=== PATIENT | female | born 1990 | race Caucasian/White ===

== ENCOUNTER 2019-05-01 18:53 | Observation (INO) | payer MEDICAID ==
[2019-05-01 19:42] LABS: BILIRUBIN,URINE SMALL (NEG); CLARITY,URINE CLEAR; COLOR,URINE ORANGE; NITRITE,URINE NEGATIVE (NEG); PROTEIN,URINE 30 mg/dL (NEG-TRACE)
[2019-05-01] MEDS: IV RINGERS,LACTATED 1000ML 1,000 ML IV SCH ×2 (19:45→20:51)
[2019-05-01 19:47] LABS: BARBITURATES NEG (NEG); BENZODIAZEPINES NEG (NEG); CANNABINOIDS NEG (NEG); COCAINE NEG (NEG); METHADONE NEG (NEG); OPIATES NEG (NEG); PHENCYCLIDINE NEG (NEG)
[2019-05-01 19:48] LABS: AMPHETAMINE/METHAMPHETAMINE NEG (NEG)
[2019-05-01 19:52] LABS: BACTERIA,URINE FEW /HPF (0-FEW); RBC,URINE 0 /HPF (0-2); SQUAMOUS EPITHELIAL CELL,UR MANY /LPF
[2019-05-01] MEDS ORDERED: IV RINGERS,LACTATED 1000ML 1,000 ML IV SCH (20:00)
[2019-05-01] MEDS ORDERED: ONDANSETRON PF 4 MG/2 ML VIAL. IVP PRN (20:00)
[2019-05-01 20:51] LABS: BASO # 0.1 x10^3/uL (0.0-0.2); BASO % 1 % (0-3); EOS # 0.1 x10^3/uL (0.0-0.7); EOS % 1 % (0-3); HEMATOCRIT 33.4 % (36.0-47.0); HEMOGLOBIN 11.4 g/dL (12.0-15.5); LYMPH # 3.6 x10^3/uL (1.0-4.8); LYMPH % 26 % (24-48); MEAN CORPUSCULAR HEMOGLOBIN 32 pg (25-35); MEAN CORPUSCULAR HGB CONC 34 g/dL (31-37); MEAN CORPUSCULAR VOLUME 95 fL (79-100); MONO # 0.9 x10^3/uL (0.0-1.1); MONO % 6 % (0-9); NEUT # 9.1 x10^3/uL (1.8-7.7); NEUT % 66 % (31-73); PLATELET COUNT 274 x10^3/uL (140-400); RED BLOOD COUNT 3.53 x10^6/uL (3.50-5.40); RED CELL DISTRIBUTION WIDTH 13.2 % (11.5-14.5); WHITE BLOOD COUNT 13.8 x10^3/uL (4.0-11.0)
[2019-05-01 20:59] LABS: CALCIUM 8.7 mg/dL (8.5-10.1); CREATININE 0.5 mg/dL (0.6-1.0); GFR 143.9; POTASSIUM 3.5 mmol/L (3.5-5.1)
[2019-05-01 21:05] LABS: ALBUMIN/GLOBULIN RATIO 0.9 (1.0-1.7); TOTAL BILIRUBIN 0.7 mg/dL (0.2-1.0); TOTAL PROTEIN 6.4 g/dL (6.4-8.2)
== END 2019-05-01 22:08 | disposition home or self-care (01) ==
LOC: 3 SO LND 18:53
PROVIDERS: ADMIT Obstetrics & Gynecology; ATTEND Obstetrics & Gynecology
DX: O26.893 Other specified pregnancy related conditions, third trimester (principal); R10.9 Unspecified abdominal pain; M54.9 Dorsalgia, unspecified; O21.0 Mild hyperemesis gravidarum; Z3A.34 34 weeks gestation of pregnancy
CPT/HCPCS: 36415; 80053; 80307; 81001; 85025; 87086; 96361; 96374; G0378; G0379; J2405; J7120

== ENCOUNTER 2019-05-29 17:30 | Observation (INO) | payer MEDICAID ==
[2019-05-29] MEDS ORDERED: IV RINGERS,LACTATED 1000ML 1,000 ML IV SCH (17:33)
[2019-05-29] MEDS ORDERED: ACETAMINOPHEN 325 MG TABLET. PO PRN (17:45)
[2019-05-29] MEDS ORDERED: ONDANSETRON PF 4 MG/2 ML VIAL. IV PRN (17:45)
[2019-05-29 17:50] LABS: BILIRUBIN,URINE SMALL (NEG); CLARITY,URINE CLEAR; COLOR,URINE AMBER; NITRITE,URINE NEGATIVE (NEG); PROTEIN,URINE 100 mg/dL (NEG-TRACE)
[2019-05-29 17:56] LABS: BACTERIA,URINE FEW /HPF (0-FEW); SQUAMOUS EPITHELIAL CELL,UR MANY /LPF; WBC,URINE >40 /HPF (0-4)
[2019-05-29 17:57] LABS: BARBITURATES NEG (NEG); BENZODIAZEPINES NEG (NEG); CANNABINOIDS NEG (NEG); COCAINE NEG (NEG); METHADONE NEG (NEG); OPIATES NEG (NEG); PHENCYCLIDINE NEG (NEG)
[2019-05-29 17:58] LABS: AMPHETAMINE/METHAMPHETAMINE NEG (NEG)
--- NOTE | 2019-06-01 19:09 | SSS ---
ADMIT DATE: 05/30/2019 ADMISSION DIAGNOSES: 1. Intrauterine at 36 weeks 4 days by 14-week ultrasound. 2. labor versus contractions. 3. Status post steroids. 4. Asthma. 5. Tobacco use. 6. GBS negative. DISCHARGE DIAGNOSES: 1. Intrauterine at 36 weeks 4 days by 14-week ultrasound. 2. labor versus contractions. 3. Status post steroids. 4. Asthma. 5. Tobacco use. 6. GBS negative. PROCEDURES: None. BRIEF HOSPITAL COURSE: EDC 06/22/2019, LMP 09/21/2018. HISTORY OF PRESENT ILLNESS: The patient is a 29-year-old 7, para 2-0-4-2, at 36 weeks 4 days by 14-week ultrasound, who presented to Labor and Delivery with contractions. The patient had been seen previously at [facility] and was 4 cm. She was given Vistaril, but felt that her contractions were not being taken seriously. On presentation to [facility], the patient's cervical exam remained 4 cm. The patient was given the option of being discharged or observing her overnight since she was olga frequently. The patient ultimately decided to have observation overnight. The patient remained 4 cm the following morning and was subsequently discharged. PAST MEDICAL HISTORY: Denies. PAST SURGICAL HISTORY: History of D and C. MEDICATIONS: vitamins. ALLERGIES: No known drug allergies. OBSTETRICAL HISTORY: Term spontaneous vaginal delivery x 2, AB x 4. SOCIAL HISTORY: No tobacco or alcohol use. REVIEW OF SYSTEMS: As noted in HPI. PHYSICAL EXAMINATION: CHEST: Clear to auscultation bilaterally. CARDIOVASCULAR: Regular rate and rhythm. ABDOMEN: Soft, gravid. EXTREMITIES: No clubbing, cyanosis or edema. heart tones 140s with positive accelerations, no decelerations, moderate long-term variability noted. Tocometer 8-10 minutes, sterile vaginal exam, the patient is 4 cm dilated, 80% effaced, and -1 station. ASSESSMENT AND PLAN: 1. The patient is a 29-year-old 7, para 2-0-4-2, at 36 weeks 4 days by 14-week ultrasound. Since the patient is only having contractions and cervical exam unchanged, the patient will be discharged home to follow up in outpatient. 2. Asthma, rarely requires her inhaler. 3. Tobacco use, half a pack a day. 4. Nausea throughout the , on Zofran. 5. History of anxiety, on sertraline first trimester. 6. Desires permanent sterilization, consent form signed but not matured. LALIT HELMS MD DR: FRANK/farrah JOB#: [id number] / [id number] NAHOMI
== END 2019-05-30 09:54 | disposition home or self-care (01) ==
LOC: INTOOBSV 17:30 → 3 SO LND 17:30
PROVIDERS: ADMIT Obstetrics & Gynecology; ATTEND Obstetrics & Gynecology
DX: O62.9 Abnormality of forces of labor, unspecified (principal); O99.513 Diseases of the respiratory system complicating pregnancy, third trimester; J45.909 Unspecified asthma, uncomplicated; O99.333 Smoking (tobacco) complicating pregnancy, third trimester; F17.210 Nicotine dependence, cigarettes, uncomplicated; F41.9 Anxiety disorder, unspecified; O99.343 Other mental disorders complicating pregnancy, third trimester; F53.1 Puerperal psychosis; Z3A.36 36 weeks gestation of pregnancy; Z79.899 Other long term (current) drug therapy
CPT/HCPCS: 80307; 81001; 87086; 96374; G0378; G0379; J2405; 99285

== ENCOUNTER 2019-06-01 10:12 | Inpatient (IN) | payer MEDICAID ==
[~2019-06-01] VITALS: Ht 162.6 cm; Wt 67.6 kg
[2019-06-01 10:51] LABS: BILIRUBIN,URINE NEGATIVE (NEG); CLARITY,URINE CLOUDY; COLOR,URINE YELLOW; NITRITE,URINE NEGATIVE (NEG); PROTEIN,URINE NEGATIVE (NEG-TRACE)
[2019-06-01 11:21] LABS: BACTERIA,URINE 0 /HPF (0-FEW); SQUAMOUS EPITHELIAL CELL,UR FEW /LPF
--- NOTE | 2019-06-01 12:42 | PDOC1 ---
OB HISTORY AND PHYSICAL DATE OF ADMISSION DATE OF ADMISSION Date of Admission: Jun 01, 2019 at 10:12 CHIEF COMPLAINT Problems: (1) (2) Active labor HISTORY OF PRESENT Other Complications EDC: 06/22/19 LMP: 09/21/18 HPI: The pt is a 29y @ 37.0 by 14wk u/s presents to L&D with ctxs. On presentation the pt was found to be 5cm dilated. In the office the day prior she was found to be 4cm. Over an hours time the pts cervix progressed to 6cm so she was admitted for active labor. The pt was getting her care with [facility]. Last Friday she presented to their L&D and was found to be 2cm dilated. That the pt returned and was found to have progressed. She was given BMTZ on 05/27, 05/28. She left at 4 cm dilated and presented to [facility]. She was monitored overnight and remained 4cm. The pt states that she had a GBS obtained at the office and on L&D at [facility]. The pt states that she signed PABLITO tubal papers about 3wks ago. She is sure she wants a BTL. Review of her records revealed near the beginning of she was taking Sertaline for anxiety. She is no longer taking this med. She also was checked for bile salts and urine Pr/Cr in mid Mar. PMH: Denies PSH: D&C Meds: PNV All: NKDA OBHx: TSVD x 2, AB x 4 SH: no tob, no EtOH VTE PROPHYLAXIS ORDERED VTE Prophylaxis Devices: No VTE Pharmacological Prophylax: No OB - History Past Family/Social History * Past Medical, Surgical, Family and Obstetric Histories reviewed from chart. OB - Admission Exam Physical Exam Vitals: FHT: 150s +acels/no decels/mLTV [place]: 5-8 min SVE: 6/80/-1 Assessment/Plan Assessment/Plan A/P 29y @ 37.0 by 14wk u/s 1.) Active labor 2.) Asthma - rarely requires inhaler 3.) Tob use - 1/2PPD 4.) Fetus cat I FHT, s/p BMTZ 05/27, 05/28 5.) Nausea - throughout , on Zofran 6.) GBS neg 7.) H/o anxiety Sertaline in 1st trimester 8.) Bile salts obtained appears to be for 2+ protein, BPs nml throughout 9.) DPS consent not available at this time (probably signed 05/11/19 (not 30 days) LALIT HELMS MD Jun 01, 2019 12:42
[2019-06-01] MEDS ORDERED: LIDOCAINE 1% PF 30 ML VIAL. INJ PRN (13:00)
[2019-06-01] MEDS ORDERED: fentaNYL PF VIAL 100 MCG/2 ML VIAL IV PRN (13:00)
[2019-06-01] MEDS ORDERED: OXYTOCIN 30 UNIT/500 ML PREMIX 500 ML IV PRN ×3 (13:00→17:00)
[2019-06-01] MEDS ORDERED: TERBUTALINE 1 MG/ML VIAL. SQ PRN (13:00)
[2019-06-01] MEDS ORDERED: 0.9 % SODIUM CHLORIDE 10 ML DISP.SYRIN. IV PRN ×2 (13:00→17:00)
[2019-06-01 13:05] LABS: BASO # 0.1 x10^3/uL (0.0-0.2); BASO % 1 % (0-3); EOS # 0.1 x10^3/uL (0.0-0.7); EOS % 0 % (0-3); HEMATOCRIT 36.3 % (36.0-47.0); HEMOGLOBIN 12.3 g/dL (12.0-15.5); LYMPH # 2.7 x10^3/uL (1.0-4.8); LYMPH % 16 % (24-48); MEAN CORPUSCULAR HEMOGLOBIN 31 pg (25-35); MEAN CORPUSCULAR HGB CONC 34 g/dL (31-37); MEAN CORPUSCULAR VOLUME 92 fL (79-100); MONO % 6 % (0-9); NEUT # 13.5 x10^3/uL (1.8-7.7); NEUT % 78 % (31-73); PLATELET COUNT 207 x10^3/uL (140-400); RED BLOOD COUNT 3.97 x10^6/uL (3.50-5.40); RED CELL DISTRIBUTION WIDTH 13.1 % (11.5-14.5); WHITE BLOOD COUNT 17.4 x10^3/uL (4.0-11.0)
[2019-06-01 13:29] VITALS: BP 124/59
[2019-06-01] MEDS: IV RINGERS,LACTATED 1000ML 1,000 ML IV SCH ×2 (13:35→20:48)
--- NOTE | 2019-06-01 13:50 | PDOC ---
OB Progress Note Notes Pt comfortable at this time. Plans to get Epidural Lab Laboratory Tests Test 06/01/19 10:35 06/01/19 12:45 Urine Collection Type Unknown Urine Color Yellow Urine Clarity Cloudy Urine pH 7.0 Urine Specific [place] 1.015 Urine Protein Negative mg/dL (NEG-TRACE) Urine Glucose (UA) Negative mg/dL (NEG) Urine Ketones (Stick) Negative mg/dL (NEG) Urine Blood Small (NEG) Urine Nitrite Negative (NEG) Urine Bilirubin Negative (NEG) Urine Urobilinogen Dipstick 2.0 mg/dL (0.2 mg/dL) Urine Leukocyte Esterase Small (NEG) Urine RBC 6-10 /HPF (0-2) Urine WBC 1-4 /HPF (0-4) Urine Squamous Epithelial Cells Few /LPF Urine Bacteria 0 /HPF (0-FEW) White Blood Count 17.4 x10^3/uL (4.0-11.0) Red Blood Count 3.97 x10^6/uL (3.50-5.40) Hemoglobin 12.3 g/dL (12.0-15.5) Hematocrit 36.3 % (36.0-47.0) Mean Corpuscular Volume 92 fL (79-100) Mean Corpuscular Hemoglobin 31 pg (25-35) Mean Corpuscular Hemoglobin Concent 34 g/dL (31-37) Red Cell Distribution Width 13.1 % (11.5-14.5) Platelet Count 207 x10^3/uL (140-400) Neutrophils (%) (Auto) 78 % (31-73) Lymphocytes (%) (Auto) 16 % (24-48) Monocytes (%) (Auto) 6 % (0-9) Eosinophils (%) (Auto) 0 % (0-3) Basophils (%) (Auto) 1 % (0-3) Neutrophils # (Auto) 13.5 x10^3/uL (1.8-7.7) Lymphocytes # (Auto) 2.7 x10^3/uL (1.0-4.8) Monocytes # (Auto) 1.0 x10^3/uL (0.0-1.1) Eosinophils # (Auto) 0.1 x10^3/uL (0.0-0.7) Basophils # (Auto) 0.1 x10^3/uL (0.0-0.2) Laboratory Tests Test 06/01/19 10:35 06/01/19 12:45 Urine Collection Type Unknown Urine Color Yellow Urine Clarity Cloudy Urine pH 7.0 Urine Specific [place] 1.015 Urine Protein Negative mg/dL (NEG-TRACE) Urine Glucose (UA) Negative mg/dL (NEG) Urine Ketones (Stick) Negative mg/dL (NEG) Urine Blood Small (NEG) Urine Nitrite Negative (NEG) Urine Bilirubin Negative (NEG) Urine Urobilinogen Dipstick 2.0 mg/dL (0.2 mg/dL) Urine Leukocyte Esterase Small (NEG) Urine RBC 6-10 /HPF (0-2) Urine WBC 1-4 /HPF (0-4) Urine Squamous Epithelial Cells Few /LPF Urine Bacteria 0 /HPF (0-FEW) White Blood Count 17.4 x10^3/uL (4.0-11.0) Red Blood Count 3.97 x10^6/uL (3.50-5.40) Hemoglobin 12.3 g/dL (12.0-15.5) Hematocrit 36.3 % (36.0-47.0) Mean Corpuscular Volume 92 fL (79-100) Mean Corpuscular Hemoglobin 31 pg (25-35) Mean Corpuscular Hemoglobin Concent 34 g/dL (31-37) Red Cell Distribution Width 13.1 % (11.5-14.5) Platelet Count 207 x10^3/uL (140-400) Neutrophils (%) (Auto) 78 % (31-73) Lymphocytes (%) (Auto) 16 % (24-48) Monocytes (%) (Auto) 6 % (0-9) Eosinophils (%) (Auto) 0 % (0-3) Basophils (%) (Auto) 1 % (0-3) Neutrophils # (Auto) 13.5 x10^3/uL (1.8-7.7) Lymphocytes # (Auto) 2.7 x10^3/uL (1.0-4.8) Monocytes # (Auto) 1.0 x10^3/uL (0.0-1.1) Eosinophils # (Auto) 0.1 x10^3/uL (0.0-0.7) Basophils # (Auto) 0.1 x10^3/uL (0.0-0.2) Medications Current Medications Sodium Chloride (Normal Saline Flush) 3 ml QSHIFT PRN IV AFTER MEDS AND BLOOD DRAWS; Start 06/01/19 at 13:00 Ringer's Solution 1,000 ml @ 125 mls/hr Q8H IV Last administered on 06/01/19at 13:35; Start 06/01/19 at 12:48 Fentanyl Citrate (Fentanyl 2ml Vial) 100 mcg PRN Q30MIN PRN IV Severe pain; Start 06/01/19 at 13:00 Terbutaline Sulfate (Brethine) 0.25 mg 1X PRN PRN SQ SEE COMMENTS; Start 06/01/19 at 13:00; Stop 06/02/19 at 12:59 Lidocaine HCl (Xylocaine 1% Pf 30ml Vial) 30 ml 1X PRN PRN INJ SEE COMMENTS; Start 06/01/19 at 13:00; Stop 06/03/19 at 12:59 Oxytocin/Sodium Chloride 500 ml @ 0 mls/hr CONT PRN IV SEE I/O RECORD; Start 06/01/19 at 13:00 Oxytocin/Sodium Chloride 500 ml @ 0 mls/hr CONT PRN PRN IV Post delivery bleeding; Start 06/01/19 at 13:00 Ibuprofen (Motrin) 800 mg PRN Q6HRS PRN PO PAIN; Start 06/01/19 at 13:00 Notes FHT: 150s +acels/no decels/mLTV [place]: 5-8 min SVE: 6-7/80/-1 Assessment A/P 29y @ 37.0 by 14wk u/s 1.) Active labor - AROM'ed for augmentation ([facility]) 2.) Asthma - rarely requires inhaler 3.) Tob use - 1/2PPD 4.) Fetus cat I FHT, s/p BMTZ 2/6, 2/7 5.) Nausea - throughout , on Zofran 6.) GBS neg 7.) H/o anxiety Sertaline in 1st trimester 8.) Bile salts obtained appears to be for 2+ protein, BPs nml throughout 9.) DPS PABLITO consent signed 05/11/19 LALIT HELMS MD Jun 01, 2019 13:50
[2019-06-01 14:14] LABS: % BANDS 3 % (0-9); % LYMPHS 18 % (24-48); % MONOS 3 % (0-10); % SEGS 76 % (35-66)
[2019-06-01 14:16] LABS: PLT ESTIMATE ADEQUATE (ADEQUATE); POLYCHROMASIA SLIGHT; TOXIC GRANULATION SLIGHT
[2019-06-01] MEDS ORDERED: IV RINGERS,LACTATED 1000ML 1,000 ML IV ONE (14:20)
[2019-06-01] MEDS ORDERED: ROPIVacaine 0.2% PF 10 ML VIAL. ONE ×2 (14:24→15:00)
[2019-06-01] MEDS ORDERED: NALOXONE 0.4 MG/ML VIAL. IV PRN (14:30)
[2019-06-01] MEDS ORDERED: L&D EPIDURAL SYRINGE 50 ML EPID PRN (14:30)
[2019-06-01] MEDS ORDERED: ONDANSETRON PF 4 MG/2 ML VIAL. IV PRN (14:30)
[2019-06-01] MEDS ORDERED: ePHEDrine PF IN SALINE 50 MG/10 ML SYRINGE. IV PRN (14:30)
[2019-06-01] MEDS ORDERED: OXYTOCIN PREMIX 30 UNIT/500 ML NS BAG. IV ONE (15:00)
--- NOTE | 2019-06-01 16:57 | PDOC ---
VAGINAL DELIVERY DATE DATE: 06/01/19 TIME: 16:56 WEIGHT Weight [ ] DIAGNOSIS Patient delivered a viable male over intact perineum at 1639. bulb suctioned at perineum. Cord double clamped and cut and handed to waiting RN. Wt 6lb 8.2oz. Apgars 8/9. Placenta delivered spontaneously, intact with 3VC. No lacerations observed. 20U of Pitocin infused with IVF. EBL 200cc. LALIT HELMS MD Jun 01, 2019 16:57
[2019-06-01] MEDS ORDERED: ZOLPIDEM 5 MG TABLET. PO PRN (17:00)
[2019-06-01] MEDS ORDERED: oxyCODONE/APAP 5/325 1 TAB TABLET PO PRN (17:00)
[2019-06-01] MEDS ORDERED: MAGNESIUM HYDROXIDE 2,400 MG/30 ML ORAL.SUSP. PO PRN (17:00)
[2019-06-01] MEDS ORDERED: MAG HYDROX/ALUMINUM HYD/SIMETH 30 ML ORAL.SUSP PO PRN (17:00)
[2019-06-01] MEDS ORDERED: ACETAMINOPHEN 325 MG TABLET. PO PRN (17:00)
[2019-06-01] MEDS ORDERED: BENZOCAINE 20% TOPICAL AEROSOL SPRAY 57GM CAN. TP PRN (17:00)
[2019-06-01] MEDS ORDERED: diphenhydrAMINE HCL 25 MG CAPSULE PO PRN (17:00)
[2019-06-01] MEDS ORDERED: HYDROCORTISONE 1% TOPICAL OINTMENT 30GM TUBE. TP PRN (17:00)
[2019-06-01] MEDS ORDERED: MMR per PROTOCOL. MC PRN (17:00)
[2019-06-01] MEDS ORDERED: SIMETHICONE 80 MG TAB.CHEW PO PRN (17:00)
[2019-06-01] MEDS ORDERED: PHENYLEPH/MINERAL OIL/PETROLAT RECTAL OINTMENT TUBE. RC PRN (17:00)
--- NOTE | 2019-06-01 19:40 | NUR ---
The patient, SAMI FAUSTIN, 29 y/o, F admitted by LALIT HELMS MD, was given information regarding hospital policies, unit procedures and contact persons. Patient is resting with family at bedside. Bed in low position with top side rails up and call light is within reach. Will continue to monitor patient. Report received from Janene Nguyen
[2019-06-01 20:01] VITALS: BP 108/66
[2019-06-01] MEDS: IBUPROFEN 400 MG TABLET. PO PRN (21:45)
[2019-06-02 00:47] VITALS: BP 99/50
[2019-06-02 03:49] LABS: HEMOGLOBIN 11.5 g/dL (12.0-15.5); RED BLOOD COUNT 3.69 x10^6/uL (3.50-5.40); RED CELL DISTRIBUTION WIDTH 12.9 % (11.5-14.5); WHITE BLOOD COUNT 16.3 x10^3/uL (4.0-11.0)
[2019-06-02] MEDS: IBUPROFEN 400 MG TABLET. PO PRN ×3 (05:53→21:57)
[2019-06-02 05:59] VITALS: BP 110/64
[2019-06-02] MEDS: IV RINGERS,LACTATED 1000ML 1,000 ML IV SCH (06:32)
--- NOTE | 2019-06-02 07:50 | PDOC ---
OB Progress Note Date of Service 06/02/19 Time of Evaluation 0750 Notes Pt. feeling well. No complaints. Lab Laboratory Tests Test 06/01/19 10:35 06/01/19 12:45 06/02/19 03:20 Urine Collection Type Unknown Urine Color Yellow Urine Clarity Cloudy Urine pH 7.0 Urine Specific [place] 1.015 Urine Protein Negative mg/dL (NEG-TRACE) Urine Glucose (UA) Negative mg/dL (NEG) Urine Ketones (Stick) Negative mg/dL (NEG) Urine Blood Small (NEG) Urine Nitrite Negative (NEG) Urine Bilirubin Negative (NEG) Urine Urobilinogen Dipstick 2.0 mg/dL (0.2 mg/dL) Urine Leukocyte Esterase Small (NEG) Urine RBC 6-10 /HPF (0-2) Urine WBC 1-4 /HPF (0-4) Urine Squamous Epithelial Cells Few /LPF Urine Bacteria 0 /HPF (0-FEW) White Blood Count 17.4 x10^3/uL (4.0-11.0) 16.3 x10^3/uL (4.0-11.0) Red Blood Count 3.97 x10^6/uL (3.50-5.40) 3.69 x10^6/uL (3.50-5.40) Hemoglobin 12.3 g/dL (12.0-15.5) 11.5 g/dL (12.0-15.5) Hematocrit 36.3 % (36.0-47.0) 34.0 % (36.0-47.0) Mean Corpuscular Volume 92 fL (79-100) 92 fL (79-100) Mean Corpuscular Hemoglobin 31 pg (25-35) 31 pg (25-35) Mean Corpuscular Hemoglobin Concent 34 g/dL (31-37) 34 g/dL (31-37) Red Cell Distribution Width 13.1 % (11.5-14.5) 12.9 % (11.5-14.5) Platelet Count 207 x10^3/uL (140-400) 210 x10^3/uL (140-400) Neutrophils (%) (Auto) 78 % (31-73) Lymphocytes (%) (Auto) 16 % (24-48) Monocytes (%) (Auto) 6 % (0-9) Eosinophils (%) (Auto) 0 % (0-3) Basophils (%) (Auto) 1 % (0-3) Neutrophils # (Auto) 13.5 x10^3/uL (1.8-7.7) Lymphocytes # (Auto) 2.7 x10^3/uL (1.0-4.8) Monocytes # (Auto) 1.0 x10^3/uL (0.0-1.1) Eosinophils # (Auto) 0.1 x10^3/uL (0.0-0.7) Basophils # (Auto) 0.1 x10^3/uL (0.0-0.2) Segmented Neutrophils % 76 % (35-66) Band Neutrophils % 3 % (0-9) Lymphocytes % 18 % (24-48) Monocytes % 3 % (0-10) Toxic Granulation Slight Platelet Estimate Adequate (ADEQUATE) Polychromasia Slight Treponema pallidum Antibody Nonreactive (Nonreactive) Laboratory Tests Test 06/01/19 10:35 06/01/19 12:45 06/02/19 03:20 Urine Collection Type Unknown Urine Color Yellow Urine Clarity Cloudy Urine pH 7.0 Urine Specific [place] 1.015 Urine Protein Negative mg/dL (NEG-TRACE) Urine Glucose (UA) Negative mg/dL (NEG) Urine Ketones (Stick) Negative mg/dL (NEG) Urine Blood Small (NEG) Urine Nitrite Negative (NEG) Urine Bilirubin Negative (NEG) Urine Urobilinogen Dipstick 2.0 mg/dL (0.2 mg/dL) Urine Leukocyte Esterase Small (NEG) Urine RBC 6-10 /HPF (0-2) Urine WBC 1-4 /HPF (0-4) Urine Squamous Epithelial Cells Few /LPF Urine Bacteria 0 /HPF (0-FEW) White Blood Count 17.4 x10^3/uL (4.0-11.0) 16.3 x10^3/uL (4.0-11.0) Red Blood Count 3.97 x10^6/uL (3.50-5.40) 3.69 x10^6/uL (3.50-5.40) Hemoglobin 12.3 g/dL (12.0-15.5) 11.5 g/dL (12.0-15.5) Hematocrit 36.3 % (36.0-47.0) 34.0 % (36.0-47.0) Mean Corpuscular Volume 92 fL (79-100) 92 fL (79-100) Mean Corpuscular Hemoglobin 31 pg (25-35) 31 pg (25-35) Mean Corpuscular Hemoglobin Concent 34 g/dL (31-37) 34 g/dL (31-37) Red Cell Distribution Width 13.1 % (11.5-14.5) 12.9 % (11.5-14.5) Platelet Count 207 x10^3/uL (140-400) 210 x10^3/uL (140-400) Neutrophils (%) (Auto) 78 % (31-73) Lymphocytes (%) (Auto) 16 % (24-48) Monocytes (%) (Auto) 6 % (0-9) Eosinophils (%) (Auto) 0 % (0-3) Basophils (%) (Auto) 1 % (0-3) Neutrophils # (Auto) 13.5 x10^3/uL (1.8-7.7) Lymphocytes # (Auto) 2.7 x10^3/uL (1.0-4.8) Monocytes # (Auto) 1.0 x10^3/uL (0.0-1.1) Eosinophils # (Auto) 0.1 x10^3/uL (0.0-0.7) Basophils # (Auto) 0.1 x10^3/uL (0.0-0.2) Segmented Neutrophils % 76 % (35-66) Band Neutrophils % 3 % (0-9) Lymphocytes % 18 % (24-48) Monocytes % 3 % (0-10) Toxic Granulation Slight Platelet Estimate Adequate (ADEQUATE) Polychromasia Slight Treponema pallidum Antibody Nonreactive (Nonreactive) Medications Current Medications Sodium Chloride (Normal Saline Flush) 3 ml QSHIFT PRN IV AFTER MEDS AND BLOOD DRAWS; Start 06/01/19 at 13:00; Stop 06/02/19 at 07:21; Status DC Ringer's Solution 1,000 ml @ 125 mls/hr Q8H IV Last administered on 06/01/19at 13:35; Start 06/01/19 at 12:48; Stop 06/02/19 at 07:21; Status DC Fentanyl Citrate (Fentanyl 2ml Vial) 100 mcg PRN Q30MIN PRN IV Severe pain Last administered on 06/01/19at 14:36; Start 06/01/19 at 13:00; Stop 06/02/19 at 07:21; Status DC Terbutaline Sulfate (Brethine) 0.25 mg 1X PRN PRN SQ SEE COMMENTS; Start 06/01/19 at 13:00; Stop 06/02/19 at 07:21; Status DC Lidocaine HCl (Xylocaine 1% Pf 30ml Vial) 30 ml 1X PRN PRN INJ SEE COMMENTS; Start 06/01/19 at 13:00; Stop 06/02/19 at 07:21; Status DC Oxytocin/Sodium Chloride 500 ml @ 0 mls/hr CONT PRN IV SEE I/O RECORD; Start 06/01/19 at 13:00; Stop 06/02/19 at 07:21; Status DC Oxytocin/Sodium Chloride 500 ml @ 0 mls/hr CONT PRN PRN IV Post delivery bleeding; Start 06/01/19 at 13:00 Ibuprofen (Motrin) 800 mg PRN Q6HRS PRN PO PAIN Last administered on 06/02/19at 05:53; Start 06/01/19 at 13:00 Ringer's Solution 1,000 ml @ 0 mls/hr Q0M ONCE IV Last administered on 06/01/19at 14:33; Start 06/01/19 at 14:20; Stop 06/02/19 at 07:21; Status DC Ephedrine Sulfate (ePHEDrine PF IN SALINE SYRINGE) 10 mg PRN Q2MIN PRN IV IF SBP<90; Start 06/01/19 at 14:30; Stop 06/02/19 at 07:21; Status DC Naloxone HCl (Narcan) 0.04 mg PRN Q1MIN PRN IV SEE COMMENTS; Start 06/01/19 at 14:30 Fentanyl Citrate 50 ml @ 14 mls/hr CONT PRN EPID PAIN Last administered on 06/01/19at 14:35; Start 06/01/19 at 14:30; Stop 06/02/19 at 07:21; Status DC Ondansetron HCl (Zofran) 4 mg PRN Q6HRS PRN IV NAUSEA/VOMITING; Start 06/01/19 at 14:30; Stop 06/02/19 at 07:21; Status DC Ropivacaine (Naropin 0.2%) 10 ml STK-MED ONCE .ROUTE ; Start 06/01/19 at 14:24; Stop 06/01/19 at 14:25; Status DC Sodium Chloride (Normal Saline Flush) 10 ml QSHIFT PRN IV AFTER MEDS AND BLOOD DRAWS; Start 06/01/19 at 17:00; Stop 06/02/19 at 07:21; Status DC Oxytocin/Sodium Chloride 500 ml @ 62.5 mls/hr CONT PRN IV SEE I/O RECORD; Start 06/01/19 at 17:00; Stop 06/02/19 at 00:59; Status DC Acetaminophen (Tylenol) 650 mg PRN Q6HRS PRN PO MILD PAIN / TEMP; Start 06/01/19 at 17:00 Magnesium Hydroxide (Milk Of Magnesia) 2,400 mg PRN DAILY PRN PO CONSTIPATION; Start 06/01/19 at 17:00 Al Hydroxide/Mg Hydroxide (Mylanta Plus Xs) 30 ml PRN Q4HRS PRN PO HEARTBURN / GAS; Start 06/01/19 at 17:00 Simethicone (Gas-X) 80 mg PRN AFTMEALHC PRN PO GAS / BLOATING; Start 06/01/19 at 17:00 Diphenhydramine HCl (Benadryl) 25 mg PRN Q6HRS PRN PO ITCHING; Start 06/01/19 at 17:00 Benzocaine (Americaine) 1 spray PRN QID PRN TP TOPICAL PAIN Last administered on 06/02/19at 03:23; Start 06/01/19 at 17:00 Phenyleph/Shark Oil/Min Oil/Petrol (Preparation H) 1 leanne PRN QID PRN RC RECTAL PAIN; Start 06/01/19 at 17:00 Hydrocortisone (Cortaid) 1 leanne PRN QID PRN TP PERINEAL PAIN; Start 06/01/19 at 17:00 Ferrous Sulfate (Feosol) 325 mg BIDWMEALS PO ; Start 06/02/19 at 08:00; Stop 06/02/19 at 07:21; Status DC Zolpidem Tartrate (Ambien) 5 mg PRN QHS PRN PO INSOMNIA, MAY REPEAT X1; Start 06/01/19 at 17:00 Info (Do NOT chart on this placeholder) 1 ea 1X PRN PRN MC SEE COMMENTS; Start 06/01/19 at 17:00 Info (Do NOT chart on this placeholder) 1 ea 1X PRN PRN MC SEE COMMENTS; Start 06/01/19 at 17:00; Stop 06/02/19 at 07:21; Status DC Oxycodone/ Acetaminophen (Percocet 5/325) 1 tab PRN Q4HRS PRN PO MILD PAIN 1-3; Start 06/01/19 at 17:00 Diphtheria/ Tetanus/Acell Pertussis (Boostrix) 0.5 ml ONCE ONCE VAX IM Last administered on 06/02/19at 07:46; Start 06/02/19 at 09:00; Stop 06/02/19 at 09:01 Exam Abd: soft, non tender, fundus firm Assessment PPD#1 s/p Plan of Care: Continue current Tx, Mgmt NORBERT CHIANG Jr, MD Jun 02, 2019 07:50
[2019-06-02] MEDS ORDERED: FERROUS SULFATE 325 MG TABLET. PO SCH (08:00)
[2019-06-02] MEDS ORDERED: DIPHTH,PERTUSS(ACELL),TET TOX 0.5 ML DISP.SYRIN. VAX IM ONE (09:00)
[2019-06-02 10:44] VITALS: BP 117/79
--- NOTE | 2019-06-02 11:15 | NUR ---
SS following up with referral regarding "mother has history of substance use and history of children in custody." SS reviewed mother chart. Mother UDS negative. RN reported infant Meconium negative and mother appropriate and bonding well with infant. SS met with mother in room. As observed, mother bonding well with infant during visit. Mother reported that she has been drug free for two to three years now. Mother reported that her son and daughter were placed in foster care two years ago and that she recently reunified with her daughter in December of 2018 and her son in February of 2019. Mother reported that both children have remained in her custody since that time. Mother has Medicaid and reported that she has been on services with [facility]. Mother reported that she has [place] appointment scheduled. Mother reported that care was with Dr. Willard Dillon. Mother reported she has all supplies needed for to include carseat, diapers, wipes, clothing, and blankets. Mother reported having good family support especially from maternal grandmother. Mother reported having good transportation to and from appointments. Mother reported that she plans to go back to work at [employer] on [address] in [place]. Mother reported that contact worker lithography is Dr. Lacie Delgadillo. Hotline report made for history of substance use and history of DCF custody. Intake#[id number]. RN notified.
[2019-06-02 16:05] VITALS: BP 112/78
[2019-06-03] MEDS: IBUPROFEN 400 MG TABLET. PO PRN ×3 (05:24→17:29)
[2019-06-03 05:30] VITALS: BP 113/71
--- NOTE | 2019-06-03 11:14 | PDOC3 ---
OB DISCHARGE SUMMARY DATE OF ADMISSION: 06/01/19 DATE OF DISCHARGE: 06/03/19 REASON FOR ADMISSION: Onset of labor INTRAPARTUM PROCEDURES: Spontanous Vag Deliv DISCHARGE DIAGNOSIS: Term Delivered DISCHARGE INFORMATION: Activity (ad galo), Diet (regular), Instructions (pelvic rest x 6 wks) HOSPITAL COURSE Term gestation delivered vaginally without complications. NORBERT CHIANG Jr, MD Jun 03, 2019 11:14
[2019-06-03] MEDS ORDERED: IBUP-1027 PO (11:16)
--- NOTE | 2019-06-03 11:17 | DISCH ---
DISCHARGE INSTRUCTIONS Condition on Discharge Condition on Discharge: Stable Activity After Discharge Activity Instructions for Disc: Activity as tolerated Lifting Instructions after Dis: No heavy lifting Driving Instructions after Dis: Do not drive today Diet after Discharge Diet after Discharge: Regular Contacting the DRSabrina after DC Call your doctor for: Concerns you may have Follow-Up Follow up with: Dr. Ann in 6 wks NORBERT CHIANG Jr, MD Jun 03, 2019 11:16
--- NOTE | 2019-06-03 12:05 | NUR ---
home inst gone over with pt no questions script for ibuprofen given
[2019-06-03 12:09] VITALS: BP 112/70
[2019-06-03 17:10] VITALS: BP 119/74
--- NOTE | 2019-06-03 17:39 | NUR ---
went over board[place] policy with pt states understands and signed
--- NOTE | 2019-06-04 09:07 | PATHOLOGY ---
[facility] Accession Number: [id number] . 01 Material submitted: . placenta - PLACNETA AND CORD . 01 Clinical history: . Term EDC 06/20/2019 7 para 2 8, 9 Meconium Gestational age 37.3 weeks . 02 Diagnosis: 503 gram early term placenta of an estimated 37.3 weeks gestation with attached membranes and umbilical cord: - Subamniotic pigmented histiocytes consistent with meconium staining. - Acute chorionitis and focal early acute chorioamnionitis of placental membranes. - Focal acute subchorionitis of chorionic plate. LBQ 06/03/2019 1544 Local . 02 Comment: There are no infarcts. There is no evidence of villitis. (JPM/db; 06/03/2019) . 02 Electronically signed: . Latrell Leal MD, Pathologist NPI- [id number] . 01 Gross description: . The specimen is received in formalin labeled "Goezt, Tiffany, placenta" and consists of a circular ortega placenta measuring 16.2 x 16.0 x 3.0 cm and weighing 503 g after removal of membranes and umbilical cord. The membranes are green gil thin and translucent with mild retro-membranous clot. The surface is green blue and well vascularized with a near marginally inserted 3 vessel umbilical cord, 2.3 cm from edge. There are multiple scattered subchorionic fibrin deposits occupying approximately 5% of the surface. The umbilical cord measures 13.5 cm in length and up to 1.8 cm in diameter with no true knots. The maternal surface shows complete and intact cotyledons with minimal calcifications and a small amount of adherent blood clot. Sectioning reveals a maroon-red and spongy parenchyma with no gross lesions. Hand Riveter sections are submitted as follows: . A1: Surface vessels A2: Umbilical cord and membrane rolls A3-A4: Full-thickness section bisected A5: Disc periphery with clot (SDY; 06/02/2019) SYU/SYU 06/03/2019 1529 Local . 02 Pathologist provided ICD-10: O77.0, O41.1230, Z3A.37, Z37.0 . 02 CPT . 326870 Specimen Comment: A courtesy copy of this report has been sent to [phone] Specimen Comment: Report sent to Performed at: 01 [facility] [address] [id number] MD Alfie José MD Phone: [phone] Performed at: 02 [facility] [address] [place] [id number] MD Latrell Leal MD Phone: [phone]
== END 2019-06-03 17:43 | disposition home or self-care (01) | DRG 807 ==
LOC: 3 SO LND 10:12 → OBSVTOIN 10:12 → 3 NORTH 19:45
PROVIDERS: ADMIT Obstetrics & Gynecology; ATTEND Obstetrics & Gynecology
PROC: 10E0XZZ Delivery of Products of Conception, External Approach (ICD-10-PCS; principal; 2019-06-01)
PROC: 3E0R3BZ Introduction of Anesthetic Agent into Spinal Canal, Percutaneous Approach (ICD-10-PCS; 2019-06-01)
PROC: 00HU33Z Insertion of Infusion Device into Spinal Canal, Percutaneous Approach (ICD-10-PCS; 2019-06-01)
PROC: 10907ZC Drainage of Amniotic Fluid, Therapeutic from Products of Conception, Via Natural or Artificial Opening (ICD-10-PCS; 2019-06-01)
PROC: 3E0234Z Introduction of Serum, Toxoid and Vaccine into Muscle, Percutaneous Approach (ICD-10-PCS; 2019-06-01)
DX: O77.0 Labor and delivery complicated by meconium in amniotic fluid (principal); Z37.0 Single live birth; O99.52 Diseases of the respiratory system complicating childbirth; J45.909 Unspecified asthma, uncomplicated; Z3A.37 37 weeks gestation of pregnancy; Z23 Encounter for immunization; O99.344 Other mental disorders complicating childbirth; F41.9 Anxiety disorder, unspecified
CPT/HCPCS: 36415; 81001; 85007; 85025; 85027; 86592; 86850; 86900; 86901; 87086; 88307; 90471; 90715; J2590; J2795; J3010; J7120; G0378

== ENCOUNTER → 2019-09-23 | Outpatient (CLI) | payer MEDICAID ==
[~2019-09-23] MED LIST: IBUP-1027 PO; IBUP-1060 PO; OXYC1TAB15 PO
== END | disposition home or self-care (01) ==
LOC: LAB 14:22
PROVIDERS: ATTEND Obstetrics & Gynecology
DX: Z11.59 Encounter for screening for other viral diseases (principal)
CPT/HCPCS: C9803; U0003

== ENCOUNTER 2019-09-27 11:22 | Day surgery (SDC) | payer MEDICAID ==
[~2019-09-27 11:22] MED LIST changes: +DEXAMETHASONE SOD PHOS 4 MG/ML VIAL ONE; +HYDROmorphone 2 MG/ML VIAL IV PRN; -IBUP-1060 PO; +IV RINGERS,LACTATED 1000ML 1,000 ML IV SCH; +KETOROLAC 30 MG/ML VIAL. ONE; +LIDOCAINE 1% PF 2 ML VIAL. ID PRN; +LIDOCAINE 2% PF 5 ML VIAL. ONE; +MIDAZOLAM HCL/PF 2 MG/2 ML VIAL. ONE; +MORPHINE SULFATE 2 MG/ML VIAL. IV PRN; +NEOSTIGMINE METHYLSULFATE 5 MG/5 ML SYRINGE. ONE; +ONDANSETRON PF 4 MG/2 ML VIAL. IV PRN; +ONDANSETRON PF 4 MG/2 ML VIAL. ONE; -OXYC1TAB15 PO; +PROCHLORPERAZINE 10 MG/2 ML VIAL. IV PRN; +PROPOFOL 10 MG/ML (20ML) VIAL. IV ONE; +ROCURONIUM 100 MG/10 ML VIAL. ONE; +fentaNYL PF VIAL 100 MCG/2 ML VIAL IV PRN; +fentaNYL PF VIAL 100 MCG/2 ML VIAL ONE
[2019-09-27 12:10] LABS: BASO # 0.1 x10^3/uL (0.0-0.2); BASO % 1 % (0-3); EOS # 0.3 x10^3/uL (0.0-0.7); EOS % 3 % (0-3); HEMATOCRIT 38.1 % (36.0-47.0); LYMPH # 3.2 x10^3/uL (1.0-4.8); LYMPH % 27 % (24-48); MEAN CORPUSCULAR HEMOGLOBIN 31 pg (25-35); MEAN CORPUSCULAR HGB CONC 34 g/dL (31-37); MEAN CORPUSCULAR VOLUME 90 fL (79-100); MONO # 0.8 x10^3/uL (0.0-1.1); MONO % 7 % (0-9); NEUT # 7.5 x10^3/uL (1.8-7.7); NEUT % 63 % (31-73); PLATELET COUNT 334 x10^3/uL (140-400); RED BLOOD COUNT 4.21 x10^6/uL (3.50-5.40); RED CELL DISTRIBUTION WIDTH 14.7 % (11.5-14.5); WHITE BLOOD COUNT 11.8 x10^3/uL (4.0-11.0)
[2019-09-27] MEDS ORDERED: IBUP-1060 PO (13:35)
[2019-09-27] MEDS ORDERED: OXYC1TAB15 PO (13:35)
[2019-09-27] MEDS ORDERED: SEVOFLURANE 61 TO 120 MINUTES. IH ONE (13:42)
--- NOTE | 2019-09-27 13:54 | PDOC4 ---
OPERATIVE NOTE: PreOp Dx: DPS, Multiparty Post Op Dx: same Procedure: L/S bilateral salpingectomy Surgeon: Jen Helms Anesthesia: GETA EBL: minimal Complications: None Finding: nml tube and ovaries Path: bilateral tubes LALIT HELMS MD Sep 27, 2019 13:54
[2019-09-27] MEDS ORDERED: fentaNYL PF VIAL 100 MCG/2 ML VIAL ONE (14:00)
[2019-09-27] MEDS: fentaNYL PF VIAL 100 MCG/2 ML VIAL IV PRN ×2 (14:03→14:09)
--- NOTE | 2019-09-27 14:09 | OP ---
DATE OF SURGERY: 09/27/2019 PREOPERATIVE DIAGNOSES: 1. Desires permanent sterilization. 2. Multiparity. POSTOPERATIVE DIAGNOSES: 1. Desires permanent sterilization. 2. Multiparity. PROCEDURE: Laparoscopic bilateral salpingectomy. SURGEON: Xander Helms MD ANESTHESIA: General endotracheal intubation. ESTIMATED BLOOD LOSS: Minimal. COMPLICATIONS: None. FINDINGS: Normal tubes, ovaries and uterus. PATHOLOGY: Bilateral tubes. DESCRIPTION OF PROCEDURE: The patient was taken to the operating room where general endotracheal intubation was obtained without difficulty. The patient was prepped and draped in a normal sterile fashion. Attention was first turned to the vagina where speculum was placed to visualize the cervix. A single tooth tenaculum was then placed on the anterior lip of the cervix. An acorn uterine manipulator was then placed into her cervix. The speculum was then removed. Attention was then turned to the abdomen where a 5-mm skin incision was made in her infraumbilical fold. A Veress needle was then introduced into the intra-abdominal cavity. The abdomen was then insufflated to 15 mmHg. Once this had been accomplished, the Veress needle was removed and a 5 mm trocar was then directly placed in the abdomen. Intra-abdominal placement was confirmed with the laparoscope. Visualization of the pelvis revealed normal anatomy. A second trocar was then placed on the left approximately two-thirds between the ischial spine and the umbilicus, first by making 5 mm skin incision followed by placing a 5-mm trocar under direct visualization of the laparoscope. This was then performed on the right side, where a 5 mm skin incision was placed two-thirds between the ischial spine and the umbilicus, followed by placing a 5-mm trocar under direct visualization of the laparoscope. At that point, the left tube was followed out to the fimbria and grasped. The tube was then undermined with the Harmonic scalpel to separate the tube from the peritoneum. This was continued to the level of the uterus. At that point, the tube was ligated off. The tube was then brought through the trocar and sent to pathology. This was then performed on the right side where the tube was followed out to the fimbria. The tube was then from the peritoneum. Once the tube was to the level of the uterus, the tube was then ligated from the uterus. This segment of the tube was then brought through the trocar as well and also sent to pathology. Good hemostasis was noted. At that point, the laparoscope was then removed as well as the instruments. The abdomen was insufflated. At that point, the trocars were then removed. The port sites were then closed with 4-0 Monocryl in a subcuticular manner. The instruments from the vagina were then removed. The patient tolerated the procedure well. Sponges, laps, needles were correct x 2. The patient was brought to the recovery room in stable condition. XANDER HELMS MD DR: FRANK/farrah JOB#: [id number] / [id number] NAHOMI
[2019-09-27 14:25] VITALS: BP 103/50
[2019-09-27] MEDS ORDERED: oxyCODONE/APAP 5/325 1 TAB TABLET PO ONE (14:30)
--- NOTE | 2019-09-29 19:06 | PATHOLOGY ---
[facility] Accession Number: [id number] . 01 Material submitted: . fallopian tube - RIGHT AND LEFT FALLOPIAN TUBES. Modifiers: bilateral . 01 Clinical history: . Sterilization . 02 Diagnosis: Laparoscopic bilateral tubal ligation: - Segments (2) of fallopian tube confirmed. (JPM:[facility] 09/29/2019) P 09/29/2019 1902 Local . 02 Electronically signed: . Latrell Leal MD, Pathologist NPI- [id number] . 01 Gross description: . The specimen is received in formalin, labeled "Tiffany Goetz, right and left fallopian tubes". Received are two fimbriated fallopian tubes measuring 4.3 and 4.4 cm in length, with an average diameter of 0.5 cm. One fallopian tube is differentially inked black. Sectioning reveals pinpoint to patent lumens. [employer] sections from each segment are submitted in cassette A1. ([facility]; 09/28/2019) QA/[facility] 09/28/2019 1558 Local . 02 Pathologist provided ICD-10: Z30.2 . 02 CPT . 466606 Specimen Comment: A courtesy copy of this report has been sent to [phone] Specimen Comment: Report sent to Performed at: 01 [facility] [address], [place], [place] [id number] MD Alfie José MD Phone: [phone] Performed at: 02 [facility] [address], [place] [id number] MD Latrell Leal MD Phone: [phone]
== END 2019-09-27 15:09 | disposition home or self-care (01) ==
LOC: SURG 11:22
PROVIDERS: ATTEND Obstetrics & Gynecology
DX: Z30.2 Encounter for sterilization (principal); F41.9 Anxiety disorder, unspecified; Z72.89 Other problems related to lifestyle
CPT/HCPCS: 36415; 58670; 81025; 85025; 86850; 86900; 86901; A7015; J1100; J1885; J2250; J2405; J2704; J2710; J3010; J3490; J7120; 88302